=== PATIENT | female | born 1940 | race Caucasian/White ===

== ENCOUNTER 2020-02-06 16:54 | Inpatient (IN) ==
[2020-02-06] MEDS ORDERED: [UNRECOGNIZED DRUG - OTHER] PO PRN (22:36)
[2020-02-06] MEDS ORDERED: Budesonide Neb 0.5 MG/2 ML IH PRN (22:36)
[2020-02-06] MEDS ORDERED: Ondansetron 4 MG/2 ML VIAL IVP PRN (22:39)
[2020-02-06] MEDS ORDERED: 0.9 % Sodium Chloride 1,000 ML IVC SCH (22:45)
[2020-02-06] MEDS: Gabapentin 300 MG CAPSULE PO SCH (23:52)
[2020-02-07] MEDS: Ipratropium 1 PUFF INHALER IH SCH ×4 (03:28→19:46)
[2020-02-07] MEDS: *HR* Enoxaparin 40 MG/0.4 ML SYRINGE SQ SCH (05:27)
[2020-02-07] MEDS: Aspirin 325 MG TABLET PO SCH (08:07)
[2020-02-07] MEDS: Multivit/Ca/Min/Fe/FA 1 TAB TABLET PO SCH (08:07)
[2020-02-07] MEDS: DilTIAZem CD (24hr) 120 MG CAP.ER.24H PO SCH (08:08)
[2020-02-07] MEDS: Gabapentin 300 MG CAPSULE PO SCH ×2 (08:08→20:38)
[2020-02-07] MEDS: Furosemide 20 MG TABLET PO SCH (08:08)
[2020-02-07 09:41] LABS: Basophils % 0.2 %; Eosinophils % 0.3 %; Hematocrit 37.5 % (35.3-44.9); Hemoglobin 12.5 g/dL (11.5-15.4); Immature Granulocytes % 1.2 % (0-4); Lymphocytes % 10.4 %; Mean Corpuscular HGB Conc 33.3 g/dL (31.6-35.5); Mean Corpuscular Hemoglobin 30.3 pg (28.0-33.3); Mean Corpuscular Volume 90.8 fL (83.0-100.0); Mean Platelet Volume 9.8 fL (9.4-12.4); Monocytes # 0.5 K/mcL (0.0-1.3); Monocytes % 5.1 %; Neutrophils # 7.8 K/mcL (1.6-8.9); Platelet Count 151 K/mcL (140-400); Red Blood Count 4.13 M/mcL (3.82-4.97); Red Cell Distribution Width 13.5 % (11.5-14.5); Segmented Neutrophils % 82.8 %; White Blood Count 9.4 K/mcL (4.3-11.1)
[2020-02-07 09:59] LABS: Albumin 3.1 g/dL (3.5-5.7); Albumin/Globulin Ratio 1.2 (1.1-2.2); Bilirubin,Total 0.5 mg/dL (0.3-1.0); Calcium 8.8 mg/dL (8.6-10.3); Globulin 2.6 g/dL (2.4-3.5); Magnesium 1.6 mg/dL (1.6-2.6); Potassium 3.6 mEq/L (3.5-5.1); Total Protein 5.7 g/dL (6.4-8.9)
[2020-02-07] MEDS: Azithromycin 500 MG in 0.9 % Sodium Chloride 250 ML IVPB SCH (10:51)
[2020-02-07] MEDS: cefTRIAXone 1,000 MG in Water for inj. (sterile) 10 ML IVP SCH (10:51)
[2020-02-07] MEDS: Dexamethasone 4 MG/ML VIAL IVP SCH (15:51)
[2020-02-08] MEDS: Ipratropium 1 PUFF INHALER IH SCH ×4 (03:31→21:54)
[2020-02-08] MEDS: *HR* Enoxaparin 40 MG/0.4 ML SYRINGE SQ SCH (05:24)
[2020-02-08] MEDS: Furosemide 20 MG TABLET PO SCH (08:08)
[2020-02-08] MEDS: DilTIAZem CD (24hr) 120 MG CAP.ER.24H PO SCH (08:08)
[2020-02-08] MEDS: Multivit/Ca/Min/Fe/FA 1 TAB TABLET PO SCH (08:08)
[2020-02-08] MEDS: cefTRIAXone 1,000 MG in Water for inj. (sterile) 10 ML IVP SCH (08:08)
[2020-02-08] MEDS: Aspirin 325 MG TABLET PO SCH (08:08)
[2020-02-08] MEDS: Gabapentin 300 MG CAPSULE PO SCH ×2 (08:08→22:00)
[2020-02-08] MEDS: Azithromycin 500 MG in 0.9 % Sodium Chloride 250 ML IVPB SCH (08:09)
[2020-02-08] MEDS: Dexamethasone 4 MG/ML VIAL IVP SCH (08:10)
[2020-02-09] MEDS: Ipratropium 1 PUFF INHALER IH SCH ×4 (03:49→22:01)
[2020-02-09] MEDS: *HR* Enoxaparin 40 MG/0.4 ML SYRINGE SQ SCH (06:13)
[2020-02-09] MEDS: Furosemide 20 MG TABLET PO SCH (08:43)
[2020-02-09] MEDS: cefTRIAXone 1,000 MG in Water for inj. (sterile) 10 ML IVP SCH (08:43)
[2020-02-09] MEDS: Aspirin 325 MG TABLET PO SCH (08:43)
[2020-02-09] MEDS: Multivit/Ca/Min/Fe/FA 1 TAB TABLET PO SCH (08:43)
[2020-02-09] MEDS: DilTIAZem CD (24hr) 120 MG CAP.ER.24H PO SCH (08:43)
[2020-02-09] MEDS: Azithromycin 500 MG in 0.9 % Sodium Chloride 250 ML IVPB SCH (08:44)
[2020-02-09] MEDS: Dexamethasone 4 MG/ML VIAL IVP SCH (08:45)
[2020-02-09] MEDS: Gabapentin 300 MG CAPSULE PO SCH ×2 (09:00→20:22)
[2020-02-10] MEDS: Ipratropium 1 PUFF INHALER IH SCH ×4 (04:10→21:40)
[2020-02-10] MEDS: *HR* Enoxaparin 40 MG/0.4 ML SYRINGE SQ SCH (04:22)
[2020-02-10 05:54] LABS: Hematocrit 31.9 % (35.3-44.9); Mean Corpuscular HGB Conc 32.3 g/dL (31.6-35.5); Mean Corpuscular Hemoglobin 29.9 pg (28.0-33.3); Mean Corpuscular Volume 92.7 fL (83.0-100.0); Mean Platelet Volume 9.6 fL (9.4-12.4); Platelet Count 168 K/mcL (140-400); Red Blood Count 3.44 M/mcL (3.82-4.97); Red Cell Distribution Width 13.5 % (11.5-14.5); White Blood Count 8.1 K/mcL (4.3-11.1)
[2020-02-10 06:03] LABS: Hemoglobin 10.3 g/dL (11.5-15.4)
[2020-02-10 06:13] LABS: Albumin 2.8 g/dL (3.5-5.7); Albumin/Globulin Ratio 1.2 (1.1-2.2); Bilirubin,Total 0.2 mg/dL (0.3-1.0); Calcium 8.8 mg/dL (8.6-10.3); Globulin 2.4 g/dL (2.4-3.5); Magnesium 1.6 mg/dL (1.6-2.6); Total Protein 5.2 g/dL (6.4-8.9)
[2020-02-10] MEDS: DilTIAZem CD (24hr) 120 MG CAP.ER.24H PO SCH (09:39)
[2020-02-10] MEDS: Dexamethasone 4 MG/ML VIAL IVP SCH (09:39)
[2020-02-10] MEDS: Gabapentin 300 MG CAPSULE PO SCH ×2 (09:39→21:28)
[2020-02-10] MEDS: Multivit/Ca/Min/Fe/FA 1 TAB TABLET PO SCH (09:39)
[2020-02-10] MEDS: Aspirin 325 MG TABLET PO SCH (09:39)
[2020-02-10] MEDS: Furosemide 20 MG TABLET PO SCH (09:39)
[2020-02-10] MEDS: cefTRIAXone 1,000 MG in Water for inj. (sterile) 10 ML IVP SCH (09:40)
[2020-02-10] MEDS: Azithromycin 500 MG in 0.9 % Sodium Chloride 250 ML IVPB SCH (09:42)
[2020-02-11] MEDS: Ipratropium 1 PUFF INHALER IH SCH ×4 (03:52→22:12)
[2020-02-11] MEDS: *HR* Enoxaparin 40 MG/0.4 ML SYRINGE SQ SCH (05:32)
[2020-02-11] MEDS: Aspirin 325 MG TABLET PO SCH (08:56)
[2020-02-11] MEDS: Gabapentin 300 MG CAPSULE PO SCH ×2 (08:56→21:03)
[2020-02-11] MEDS: Dexamethasone 4 MG/ML VIAL IVP SCH (08:57)
[2020-02-11] MEDS: Multivit/Ca/Min/Fe/FA 1 TAB TABLET PO SCH (08:57)
[2020-02-11] MEDS: DilTIAZem CD (24hr) 120 MG CAP.ER.24H PO SCH (08:57)
[2020-02-11] MEDS: Furosemide 20 MG TABLET PO SCH (08:57)
[2020-02-11] MEDS: cefTRIAXone 1,000 MG in Water for inj. (sterile) 10 ML IVP SCH (08:59)
[2020-02-12] MEDS: Ipratropium 1 PUFF INHALER IH SCH ×2 (03:40→07:25)
[2020-02-12] MEDS: *HR* Enoxaparin 40 MG/0.4 ML SYRINGE SQ SCH (05:34)
[2020-02-12 06:50] LABS: Hematocrit 33.1 % (35.3-44.9); Hemoglobin 10.8 g/dL (11.5-15.4); Mean Corpuscular HGB Conc 32.6 g/dL (31.6-35.5); Mean Corpuscular Volume 91.9 fL (83.0-100.0); Mean Platelet Volume 9.4 fL (9.4-12.4); Platelet Count 206 K/mcL (140-400); Red Cell Distribution Width 13.4 % (11.5-14.5); White Blood Count 8.4 K/mcL (4.3-11.1)
[2020-02-12 07:01] LABS: BUN/Creatinine Ratio 24 (6-26); Blood Urea Nitrogen 28 mg/dL (8-23); Carbon Dioxide 28 mEq/L (23-29); Chloride 101 mEq/L (98-107); Glucose 84 mg/dL (70-105); Osmolality,Calculated 285 (280-300); Potassium 3.6 mEq/L (3.5-5.1); Sodium 135 mEq/L (136-145); eGFR For African Americans 54 (> 60); eGFR For Non-African Americans 44 (> 60)
[2020-02-12 07:19] VITALS: BP 130/82
[2020-02-12 08:19] LABS: Ferritin 210 ng/mL (10-120)
[2020-02-12 09:00] LABS: C-Reactive Protein < 5 mg/L (Less than 10)
[2020-02-12] MEDS: cefTRIAXone 1,000 MG in Water for inj. (sterile) 10 ML IVP SCH (09:39)
[2020-02-12] MEDS: Aspirin 325 MG TABLET PO SCH (09:49)
[2020-02-12] MEDS: Multivit/Ca/Min/Fe/FA 1 TAB TABLET PO SCH (09:49)
[2020-02-12] MEDS: Gabapentin 300 MG CAPSULE PO SCH (09:49)
[2020-02-12] MEDS: DilTIAZem CD (24hr) 120 MG CAP.ER.24H PO SCH (09:50)
[2020-02-12] MEDS: Furosemide 20 MG TABLET PO SCH (09:50)
[2020-02-12] MEDS: Dexamethasone 4 MG/ML VIAL IVP SCH (09:50)
== END 2020-02-12 15:00 | disposition home or self-care (01) | DRG 177 ==
LOC: INPGRE 19:41
PROVIDERS: ADMIT Family Medicine; ATTEND Family Medicine